=== PATIENT | female | born 1960 | race Caucasian/White ===

== ENCOUNTER 2020-07-30 06:55 | Day surgery (SDC) | payer OTHER, SELFPAY ==
[~2020-07-30] VITALS: Ht 154.9 cm; Wt 68.0 kg
[2020-07-30] MEDS ORDERED: LIDOCAINE 2% 100 MG/5 ML UJET TP ONE ×2 (08:32→09:00)
[2020-07-30] MEDS ORDERED: fentaNYL citrate 0.05 MG/ML VIAL ONE (08:32)
[2020-07-30] MEDS ORDERED: fentaNYL citrate 0.05 MG/ML VIAL IVP ONE (09:05)
== END 2020-07-30 09:45 | disposition home or self-care (01) ==
LOC: MOR 06:55 → MMU 06:56 → MOR 09:45
PROVIDERS: ATTEND Internal Medicine Gastroenterology
DX: Z12.11 Encounter for screening for malignant neoplasm of colon (principal); K57.30 Diverticulosis of large intestine without perforation or abscess without bleeding; I10 Essential (primary) hypertension; Z79.899 Other long term (current) drug therapy
CPT/HCPCS: 45378; 87426; J3010